=== PATIENT | male | born 1985 ===

== ENCOUNTER 2017-06-18 13:45 | Emergency (ER) | payer MEDICAID ==
[2017-06-18 13:45] VITALS: BMI 31.1
[2017-06-18 14:06] VITALS: BP 131/75; PULSE 68; RESP 16; TEMP 98.9; O2SAT 98
--- NOTE | 2017-06-18 14:20 | ED PDOC ---
Arrival/HPI - General Chief Complaint: ENT Problem Time Seen by Provider: 06/18/17 14:05 Historian: Patient - History of Present Illness Narrative History of Present Illness (Text): 06/18/17 14:18 A 31 year old male, whose past medical history includes arm surgery, presents to the emergency department with left sided ear pain and decreased hearing for the last several days. The patient states that he took over the counter cerumen drops, but they symptoms have not resolved. The patient denies fevers, chills, headache, dizziness, chest pain, shortness of breath, dyspnea on exertion, cough , abdominal pain, nausea, vomiting, diarrhea, back pain, neck pain, urinary/ bowel changes, or any other complaint. PMD: Dr. Melendez Time/Duration: Other (Several Days) Symptom Onset: Sudden Symptom Course: Unchanged Activities at Onset: Rest, Light Context: Home Past Medical History - Provider Review Nursing Documentation Reviewed: Yes - Infectious Disease Hx of Infectious Diseases: None - Psychiatric Hx Substance Use: No - Surgical History Hx Orthopedic Surgery: Yes Other/Comment: L ulna surgery with plate - Anesthesia Hx Anesthesia Reactions: No Hx Malignant Hyperthermia: No Family/Social History - Physician Review Nursing Documentation Reviewed: Yes Family/Social History: No Known Family HX Smoking Status: Never Smoked Hx Alcohol Use: No Hx Substance Use: No Allergies/Home Meds Allergies/Adverse Reactions: Allergies No Known Allergies Allergy (Verified 04/11/16 07:45) Review of Systems - Physician Review All systems were reviewed & negative as marked: Yes - Review of Systems Constitutional: absent: Fevers, Night Sweats ENT: Hearing Changes, Other (Ear Pain). absent: Sore Throat Respiratory: absent: SOB, Cough Cardiovascular: absent: Chest Pain, DENNY Gastrointestinal: absent: Abdominal Pain, Stool Changes, Diarrhea, Nausea, Vomiting Genitourinary Male: absent: Urinary Output Changes Musculoskeletal: absent: Back Pain, Neck Pain Neurological: absent: Headache, Dizziness Physical Exam Vital Signs Reviewed: Yes Vital Signs Temp Pulse Resp BP Pulse Ox 06/18/17 14:02 98.9 F 68 16 131/75 98 Temperature: Afebrile Blood Pressure: Normal Pulse: Regular Respiratory Rate: Normal Appearance: Positive for: Well-Appearing, Non-Toxic, Comfortable Pain Distress: None Mental Status: Positive for: Alert and Oriented X 3 - Systems Exam Head: Present: Atraumatic, Normocephalic Pupils: Present: PERRL Extroacular Muscles: Present: EOMI Conjunctiva: Present: Normal Ears: Present: Other (Left ear has moderate cerumen). No: NORMAL TM (Opaque TM) Mouth: Present: Moist Mucous Membranes Neck: Present: Normal Range of Motion Respiratory/Chest: Present: Clear to Auscultation, Good Air Exchange. No: Respiratory Distress, Accessory Muscle Use Cardiovascular: Present: Regular Rate and Rhythm, Normal S1, S2. No: Murmurs Abdomen: Present: Normal Bowel Sounds. No: Tenderness, Distention, Peritoneal Signs Back: Present: Normal Inspection Upper Extremity: Present: Normal Inspection. No: Cyanosis, Edema Lower Extremity: Present: Normal Inspection. No: Edema Neurological: Present: GCS=15, CN II-XII Intact, Speech Normal Skin: Present: Warm, Dry, Normal Color. No: Rashes Psychiatric: Present: Alert, Oriented x 3, Normal Insight, Normal Concentration Medical Decision Making ED Course and Treatment: 06/18/17 14:22 Impression: A 31 year old male presents to the emergency department with ear pain and decreased hearing for the past few days. Plan: -- Amoxil -- Reassess and disposition Prior Visits: Notes and results from previous visits were reviewed. Patient was last seen in the emergency department on 04/11/2017. The patient was seen in the emergency department for right sided facial swelling. The patient was discharged home on Bactrima and advised to follow up with his PMD. Progress Notes: - Medication Orders Current Medication Orders: Discontinued Medications Amoxicillin (Amoxil 500 Mg Cap) 500 mg PO STAT STA PRN Reason: Protocol Stop: 06/18/17 14:16 Last Admin: 06/18/17 14:48 Dose: 500 mg - Scribe Statement The provider has reviewed the documentation as recorded by the Mj Jackson Provider Scribe Attestation: All medical record entries made by the Scribnicolás were at my direction and personally dictated by me. I have reviewed the chart and agree that the record accurately reflects my personal performance of the history, physical exam, medical decision making, and the department course for this patient. I have also personally directed, reviewed, and agree with the discharge instructions and disposition. Disposition/Present on Arrival - Present on Arrival Any Indicators Present on Arrival: No History of DVT/PE: No History of Uncontrolled Diabetes: No Urinary Catheter: No History of Decub. Ulcer: No History Surgical Site Infection Following: None - Disposition Have Diagnosis and Disposition been Completed?: Yes Diagnosis: Otitis media, Cerumen impaction Disposition: HOME/ ROUTINE Disposition Time: 02:00 (3) Condition: STABLE Discharge Instructions (ExitCare): Cerumen Impaction (ED), Otitis Media (ED) Additional Instructions: please see specialist. return to er with worsening symptoms or concerns. Prescriptions: Amoxicillin [Amoxil 500 mg Cap] 500 mg PO TID #21 cap Referrals: [facility] [Outside] - Follow up with primary [id number] [Outside] - Follow up with primary Nagi Melendez MD [Primary Care Provider] - Follow up with primary Sanya Mohr DO [Doctor Osteopathy] - Follow up with primary Forms: [employer]ender (Divehi)
== END 2017-06-18 14:57 | disposition home or self-care (01) ==
LOC: ED 13:45
DX: H61.22 Impacted cerumen, left ear (principal); H66.92 Otitis media, unspecified, left ear